=== PATIENT | female | born 1965 | race Caucasian/White ===

== ENCOUNTER → 2018-10-03 16:48 | Outpatient (CLI) | payer OTHER, SELFPAY ==
--- NOTE | 2018-10-03 16:56 | BI_ITS ---
MAMMOGRAPHY - BILATERAL SCREENING REASON FOR EXAM: Female, 52 years old. Routine annual screening examination. PERTINENT HISTORY: Non-contributory. TECHNIQUE: Digital bilateral breast maddi (3D mammographic acquisition) in the CC and MLO projections. 2-D mediolateral oblique (MLO) and craniocaudad (CC) views of both breasts were obtained. CAD: Full Field Digital Mammography with Computer Added Detection was performed. COMPARISON: No comparison mammograms available at this time. If any prior films become available, an addendum to this report can be generated. FINDINGS: Breast Composition: The breasts are extremely dense, which lowers the sensitivity of mammography. There are no dominant masses or suspicious calcifications. No other significant abnormalities are identified. BI/SCREENING MAMM (CAD), BILAT IMPRESSION: Negative screening mammogram. Yearly followup mammogram recommended. (A) ASSESSMENT CATEGORY: BIRADS Category 1: Negative. A letter regarding these results will be sent to the patient by the facility within 30 days. Approximately 10% of breast cancers are not detected by mammography. A normal mammogram should not delay biopsy of a clinically suspicious abnormality. [id number] Electronically Signed: Lev Durbin MD at 9:17 EST Tel [phone], Service support ,
--- OUTSIDE RECORDS SUMMARY | 2018-11-28 22:59 | XMS RPT_ITS ---
:1965 Author Organization [facility] Care Team Providers Name Role Phone Leny Meeks Attending Unavailable Leny Meeks Primary Care Unavailable RAJEEV PARKS Attending Unavailable SYSTEM, PROVIDER NOT IN Referring Unavailable RAJEEV PARKS Attending Unavailable SYSTEM, PROVIDER NOT IN Referring Unavailable RAJEEV PARKS Attending Unavailable SYSTEM, PROVIDER NOT IN Referring Unavailable SYSTEM, PROVIDER NOT IN Attending Unavailable SYSTEM, PROVIDER NOT IN Referring Unavailable SYSTEM, PROVIDER NOT IN Attending Unavailable SYSTEM, PROVIDER NOT IN Referring Unavailable RAJEEV PARKS Attending Unavailable SYSTEM, PROVIDER NOT IN Referring Unavailable RAJEEV PARKS Attending Unavailable SYSTEM, PROVIDER NOT IN Referring Unavailable NINI BURKETT Attending Unavailable NINI BURKETT Referring Unavailable Primay Care Physicia, No Primary Care Unavailable NINI BURKETT Consulting Unavailable PROBLEMS PROBLEMS DATE TYPE CONDITION / CODE ATTENDING STATUS SOURCE 08/29/2018 Admitting Dislocation of RAJEEV PARKS [employer] Diagnosis jaw, unspecified System ([place]) side, initial Repository encounter / S03.00XA(ICD-10) PROCEDURES PROCEDURES No Procedure Records FoundRESULTS RESULTS SCREENING MAMM (CAD), Observed: 10/03/2018 Status: F Source: ELINA BILAT 4:56 PM [facility] [place] [facility] Imaging Services [address] [place] [address] SCREENING MAMM (CAD), BILAT MR#: [id number] Acct: [id number] Name: FARZAD ALONSO Rep #: [id number] : 1965 F 52 From: Lev Durbin MD PCP: Care Physician, No Primary Status: REG CLI Study: SCREENING MAMM (CAD), BILAT Date of Exam: 10/03/18 Exam# [id number] Ordering Dr: JOSE DAVE MAMMOGRAPHY - BILATERAL SCREENING REASON FOR EXAM: Female, 52 years old. Routine annual screening examination. PERTINENT HISTORY: Non-contributory. TECHNIQUE: Digital bilateral breast maddi (3D mammographic acquisition) in the CC and MLO projections. 2-D mediolateral oblique (MLO) and craniocaudad (CC) views of both breasts were obtained. CAD: Full Field Digital Mammography with Computer Added Detection was performed. COMPARISON: No comparison mammograms available at this time. If any prior films become available, an addendum to this report can be generated. FINDINGS: Breast Composition: The breasts are extremely dense, which lowers the sensitivity of mammography. There are no dominant masses or suspicious calcifications. No other significant abnormalities are identified. BI/SCREENING MAMM (CAD), BILAT IMPRESSION: Negative screening mammogram. Yearly followup mammogram recommended. (A) ASSESSMENT CATEGORY: BIRADS Category 1: Negative. A letter regarding these results will be sent to the patient by the facility within 30 days. Approximately 10% of breast cancers are not detected by mammography. A normal mammogram should not delay biopsy of a clinically suspicious abnormality. [id number] Electronically Signed: Lev Durbin MD at 9:17 EST Tel [phone], Service support , CC: No Primary Care Physician; JOSE DAVE Agricultural Adviser: Signed ALLERGIES ALLERGIES DATE TYPE / CODE NAME / CODE REACTION SEVERITY SOURCE Drug/[id number] No Known Scientologist 003(SNOMED Allergies [facility]) System Repository ENCOUNTERS ENCOUNTERS ADMIT/DISCHARGE ACCOUNT NUMBER ADMITTING ENCOUNTER LOCATION SOURCE CLASS 10/03/2018 [id number] [facility] ding:[facility] Repository 08/29/2018 [id number] [facility] [place] [place] [address] ([place]) Repository 08/26/2018 [id number] Ambulatory Buildin [facility] ([place]) Repository 08/22/2018 [id number] Ambulatory Buildin [facility] ([place]) Repository 08/19/2018 [id number] Ambulatory Buildin [facility] ([place] Repository 08/14/2018 [id number] Ambulatory Buildin [facility] ([place] Repository 08/12/2018 [id number] Ambulatory Buildin [facility] ([place] Repository 08/08/2018 [id number] Ambulatory Buildin [facility] ([place] Repository 11/19/2017/11/19/19 [id number] Ambulatory [address] ding:[facility] Repository IM PAYERS PAYERS ENCOUNTER GUARANTOR PAYER SUBSCRIBER SOURCE 10/03/2018 JOVITA Crowley Primary Insurance:[facility] JOVITA Antoine [id number] KENIA [id number] HARPREETDDOB: [facility] [place]: [id number] [id number] Repository [address]) Date:[id number] [phone] () [place], [place] [address]MK: 10/03/2018 Secondary NOT GIVENUNK Elina Insurance:SELF PAY [facility] Number: Effective Repository Date:2018-08-29 11/19/2017 FARZAD PARNELLOB: Primary FARZAD PARNELLOB: Scientologist [id number] Insurance:1500 Self [id number] [place] [address] [facility] Number: [address] [place], [place] Effective [place], [place] Repository [id number]: Date:2016-11-20 [id number]: [id number] () Name:[id number] () ()
== END ==
DX: Z12.31 Encounter for screening mammogram for malignant neoplasm of breast (principal)
CPT/HCPCS: 77063; 77067